=== PATIENT | male | born 1965 | race African-American/Black ===

== ENCOUNTER 2025-03-23 14:39 | Inpatient (IN) | payer MEDICARE, OTHER ==
[~2025-03-23] VITALS: Ht 172.7 cm; Wt 81.6 kg
[2025-03-23 15:27] LABS: BASOPHILS # (AUTO) 0.1 K/uL (0.0-0.2); EOSINOPHILS # (AUTO) 0.2 K/uL (0.0-0.7); EOSINOPHILS % (AUTO) 2.1 % (0.0-6.0); HEMATOCRIT 42 % (39-51); HEMOGLOBIN 14.3 g/dL (13.5-17.5); LYMPHOCYTES # (AUTO) 2.1 K/uL (0.8-4.8); LYMPHOCYTES % (AUTO) 29.6 % (20.0-44.0); MEAN CORPUSCULAR HEMOGLOBIN 29 PG (26.0-33.0); MEAN CORPUSCULAR HGB CONC 34 g/dl (31.0-36.0); MEAN CORPUSCULAR VOLUME 84 fL (80-96); MONOCYTES # (AUTO) 0.6 K/uL (0.1-1.30); MONOCYTES % (AUTO) 8.7 % (2.0-12.0); NEUTROPHILS # (AUTO) 4.2 K/uL (1.8-8.9); NEUTROPHILS % (AUTO) 58.6 % (43.0-81.0); PLATELET COUNT (AUTO) 275 K/uL (150-450); RED BLOOD CELL COUNT(AUTO) 5.04 MIL/uL (4.5-6.0); RED CELL DISTRIBUTION WIDTH 14.5 % (11.5-15.0); WHITE BLOOD COUNT (AUTO) 7.2 K/uL (4.3-11.0)
[2025-03-23 15:50] LABS: CALCIUM, SERUM 9.4 mg/dL (8.5-10.1); CARBON DIOXIDE 25 mmol/L (21-32); CHLORIDE 105 mmol/L (98-107); CREATININE 0.8 mg/dL (0.6-1.3); GLUCOSE 108 mg/dL (74-106); POTASSIUM 4.2 mmol/L (3.5-5.1); SODIUM SERUM 137 mmol/L (136-145); UREA NITROGEN, BLOOD 11 mg/dL (7-18)
[2025-03-23 15:57] LABS: ACETAMINOPHEN <10 ug/ml (10-30); ALANINE AMINOTRANSFERASE 21 U/L (12-78); ALBUMIN 3.5 g/dL (3.4-5.0); ALCOHOL, BLOOD < 3 mg/dL (0-10); ALKALINE PHOSPHATASE 80 U/L (46-116); ASPARTATE AMINOTRANSFERASE 17 U/L (15-37); BILIRUBIN,DIRECT 0.1 mg/dL (0.0-0.2); BILIRUBIN,TOTAL 0.3 mg/dL (0.2-1.0); SALICYLATE 2.8 mg/dL (2.8-20.0); TOTAL PROTEIN, SERUM 7.6 g/dL (6.4-8.2)
[2025-03-23] MEDS ORDERED: BENZ1TAB7 PO (16:33)
[2025-03-23] MEDS ORDERED: HALO100A4 IM (16:33)
[2025-03-23] MEDS ORDERED: AMLO-212 PO (16:33)
[2025-03-23] MEDS ORDERED: DIVA-78 PO (16:33)
[2025-03-23] MEDS ORDERED: HALO2TAB PO (16:33)
[2025-03-23] MEDS ORDERED: LORA-259 PO (16:33)
[2025-03-23] MEDS ORDERED: ATOR20TA PO (16:33)
[2025-03-23] MEDS ORDERED: QUET100T PO (16:33)
[2025-03-23 17:20] VITALS: BP 153/109; TEMP 98; O2SAT 100
[2025-03-23] MEDS ORDERED: MAGNESIUM HYDROXIDE 30 ML UDC PO PRN (17:30)
[2025-03-23] MEDS ORDERED: MAG HYDROX/AL HYDROX/SIMETH 30 ML UDC PO PRN (17:30)
[2025-03-23] MEDS: BLOOD SUGAR DIAGNOSTIC 1 EACH STRIP IN ONE (18:34)
[2025-03-23 20:00] VITALS: BP 112/98; TEMP 98.2; O2SAT 99
[2025-03-23] MEDS ORDERED: LORAZEPAM INJ 2 MG/ML VIAL IM PRN (20:00)
[2025-03-23] MEDS ORDERED: TEMAZEPAM 7.5 MG CAPSULE PO PRN (20:00)
[2025-03-23] MEDS: LORAZEPAM 0.5 MG TABLET PO PRN (20:02)
[2025-03-23] MEDS: ATORVASTATIN 10 MG TABLET PO SCH (21:13)
[2025-03-24 07:34] LABS: ALBUMIN 3.7 g/dL (3.4-5.0); BILIRUBIN,TOTAL 0.4 mg/dL (0.2-1.0); CALCIUM, SERUM 9.5 mg/dL (8.5-10.1); CREATININE 1.1 mg/dL (0.6-1.3); POTASSIUM 4.5 mmol/L (3.5-5.1); TOTAL PROTEIN, SERUM 7.9 g/dL (6.4-8.2)
[2025-03-24 07:38] LABS: CHOLESTEROL 171 mg/dL (<200); HDL CHOLESTEROL 62 mg/dL (40-60); LDL 90 mg/dL (0-99); TRIGLYCERIDES 115 mg/dL (30-150)
[2025-03-24] MEDS: DIVALPROEX SODIUM 500 MG TABLET.DR PO SCH (08:15)
[2025-03-24] MEDS: AMLODIPINE BESYLATE 5 MG TABLET PO SCH (08:35)
[2025-03-24] MEDS: LORAZEPAM 1 MG TABLET PO ONE (09:53)
[2025-03-24] MEDS: OLANZAPINE 10 MG VIAL IM ONE ×2 (11:01→15:22)
[2025-03-24 16:00] VITALS: BP 126/95; TEMP 98; O2SAT 98
[2025-03-24] MEDS: risperiDONE 1 MG TABLET PO ONE ×2 (17:00→21:56)
[2025-03-24 19:06] LABS: CREATININE 1.2 mg/dL (0.6-1.3)
[2025-03-24 20:03] VITALS: BP 116/98; TEMP 98.8; O2SAT 100
[2025-03-24] MEDS: TEMAZEPAM 7.5 MG CAPSULE PO PRN (23:12)
[2025-03-25 07:30] VITALS: BP 124/65; TEMP 98.3; O2SAT 96
[2025-03-25] MEDS: risperiDONE 1 MG TABLET PO SCH ×2 (08:04→16:15)
[2025-03-25] MEDS: LORAZEPAM 0.5 MG TABLET PO PRN (16:15)
[2025-03-26] MEDS: LORAZEPAM INJ 2 MG/ML VIAL IM ONE (08:30)
[2025-03-26] MEDS: HALOPERIDOL LACTATE INJ 5 MG/ML VIAL IM ONE (08:30)
[2025-03-26 08:36] VITALS: BP 135/68; TEMP 98; O2SAT 99
[2025-03-26] MEDS: risperiDONE 1 MG TABLET PO SCH (13:30)
[2025-03-26 16:00] VITALS: BP 130/74; TEMP 97.8; O2SAT 99
[2025-03-27] MEDS: ACETAMINOPHEN 325 MG TABLET PO PRN (02:55)
[2025-03-27] MEDS: OLANZAPINE 10 MG VIAL IM ONE (07:25)
[2025-03-27] MEDS: HALOPERIDOL LACTATE INJ 5 MG/ML VIAL IM ONE (11:22)
[2025-03-27] MEDS: diphenhydrAMINE HCL 50 MG/ML VIAL IM ONE (11:22)
[2025-03-27] MEDS: LORAZEPAM INJ 2 MG/ML VIAL IM ONE (11:22)
[2025-03-27] MEDS ORDERED: risperiDONE 1 MG TABLET PO SCH (13:00)
[2025-03-27] MEDS: risperiDONE 1 MG TABLET PO SCH ×2 (13:00→16:30)
[2025-03-27 20:00] VITALS: BP 138/84; TEMP 97.5; O2SAT 98
[2025-03-27] MEDS: DIVALPROEX SODIUM 500 MG TABLET.DR PO SCH (21:44)
[2025-03-28] MEDS: OLANZAPINE 10 MG VIAL IM PRN (08:50)
[2025-03-29] MEDS: LORAZEPAM INJ 2 MG/ML VIAL IM STA ×2 (03:08→21:56)
[2025-03-29] MEDS: HALOPERIDOL LACTATE INJ 5 MG/ML VIAL IM STA (03:08)
[2025-03-29] MEDS: risperiDONE 1 MG TABLET PO SCH (08:00)
[2025-03-29] MEDS: PALIPERIDONE PALMITATE 234 MG/1.5 ML SYRINGE IM ONE (15:34)
[2025-03-29] MEDS: HALOPERIDOL LACTATE INJ 5 MG/ML VIAL IM ONE (21:56)
[2025-03-30] MEDS: HALOPERIDOL LACTATE INJ 5 MG/ML VIAL IM ONE (14:02)
[2025-03-30] MEDS: LORAZEPAM INJ 2 MG/ML VIAL IM ONE (14:02)
[2025-03-30] MEDS ORDERED: OLANZAPINE 10 MG VIAL IM PRN (19:30)
[2025-03-30 20:28] VITALS: BP 126/74; TEMP 98; O2SAT 99
[2025-03-31] MEDS: risperiDONE 1 MG TABLET PO SCH (08:17)
[2025-03-31] MEDS: DIVALPROEX SODIUM 500 MG TABLET.DR PO SCH (08:17)
[2025-03-31 16:00] VITALS: BP 151/105; TEMP 97.5; O2SAT 98
[2025-03-31 22:00] VITALS: BP 122/70; TEMP 98.2; O2SAT 98
[2025-04-01 21:27] VITALS: BP 125/73; TEMP 98; O2SAT 99
[2025-04-03 08:08] VITALS: BP 125/68
[2025-04-03] MEDS: DIVALPROEX SODIUM 500 MG TABLET.DR PO SCH (12:16)
[2025-04-05] MEDS: PALIPERIDONE PALMITATE 156 MG/ML SYRINGE IM ONE (08:19)
== END 2025-04-05 12:47 | DRG 885 ==
LOC: ER 14:50 → GPS 17:05
PROVIDERS: ADMIT Psychiatry & Neurology Psychosomatic Medicine; ATTEND Nurse Practitioner Family
DX: F20.9 Schizophrenia, unspecified (principal); F03.92 Unspecified dementia, unspecified severity, with psychotic disturbance; F03.94 Unspecified dementia, unspecified severity, with anxiety; F29 Unspecified psychosis not due to a substance or known physiological condition; E78.5 Hyperlipidemia, unspecified; G40.909 Epilepsy, unspecified, not intractable, without status epilepticus; F32.A Depression, unspecified; F41.9 Anxiety disorder, unspecified; Z73.6 Limitation of activities due to disability; I10 Essential (primary) hypertension; J44.9 Chronic obstructive pulmonary disease, unspecified; Z20.822 Contact with and (suspected) exposure to COVID-19
CPT/HCPCS: 36415; 80048-TC; 80053-TC; 80061-TC; 80076-TC; 82565-TC; 82962-TC; 85025-TC; 87081-TC; 97116-TC; 97530-TC; G0480; J1200; J1630; J2060; J2426; J3490